=== PATIENT | male | born 1965 | race Caucasian/White ===

== ENCOUNTER 2019-04-03 19:44 | Emergency (ER) | payer BC ==
--- NOTE | 2019-04-03 19:59 | ER Document Report ---
ED Medical Screen (RME) - General Chief Complaint: Leg Swelling Stated Complaint: LEG PAIN Primary Care Provider: GILMA MEYER PA [Primary Care Provider] - Follow up as needed TRAVEL OUTSIDE OF THE [place] IN LAST 30 DAYS: No - HPI Notes: 04/03/19 19:58 53-year-old male presents the ED for right lower leg pain and swelling for the last 6 days after he was immobilized for up to 6 hours after receiving a tattoo to his right lower extremity. Reports swelling with erythema, denies any fevers or chills. Patient would like to have a ultrasound to rule out a DVT. No fevers or chills. Denies any shortness of breath, chest pain RLE: Noted scant erythema around tattoo marking I have greeted and performed a rapid initial assessment of this patient. A comprehensive ED assessment and evaluation of the patient, analysis of test results and completion of medical decision making process will be conducted by an additional ED providers. Physical Exam - Vital signs Vitals: Temp Pulse Resp BP Pulse Ox 98.3 F 81 16 139/75 H 96 04/03/19 19:55 04/03/19 19:55 04/03/19 19:55 04/03/19 19:55 04/03/19 19:55 Course - Vital Signs Vital signs: Temp Pulse Resp BP Pulse Ox 98.3 F 81 16 139/75 H 96 04/03/19 19:55 04/03/19 19:55 04/03/19 19:55 04/03/19 19:55 04/03/19 19:55 Doctor's Discharge - Discharge Referrals: GILMA MEYER PA [Primary Care Provider] - Follow up as needed
[2019-04-03] MEDS ORDERED: FAMOTIDINE 20 MG TABLET PO ONE (22:02)
[2019-04-03] MEDS ORDERED: PREDNISONE 20 MG TABLET PO ONE (22:02)
[2019-04-03] MEDS ORDERED: METHOCARBAMOL 500 MG TABLET PO ONE (22:02)
--- NOTE | 2019-04-03 22:12 | ER Document Report ---
HPI - HPI Time Seen by Provider: 04/03/19 21:00 Pain Level: 4 Notes: This is an otherwise healthy 53-year-old male presenting to the emergency department chief complaint of swelling and pain to his right leg. Patient reports he recently got a full leg sleeve tattoo and was immobilized for 6 hours. Patient is concerned he could have a DVT. Patient has no history of DVT, has not had any recent travel and has had no other risk factors for DVT. - DERM Skin Color: Normal Past Medical History - General Information source: Patient - Social History Smoking Status: Never Smoker Frequency of alcohol use: None Drug Abuse: None Family History: Reviewed & Not Pertinent Patient has suicidal ideation: No Patient has homicidal ideation: No - Past Medical History Cardiac Medical History: Reports: Hx Hypertension Endocrine Medical History: Reports: Hx Diabetes Mellitus Type 2 Vertical Provider Document - CONSTITUTIONAL Notes: PHYSICAL EXAMINATION: GENERAL: Well-appearing, well-nourished and in no acute distress. HEAD: Atraumatic, normocephalic. EYES: Pupils equal round extraocular movements intact, conjunctiva are normal. ENT: Nares patent NECK: Normal range of motion LUNGS: No respiratory distress Musculoskeletal: Generalized edema noted to right leg, fresh tattoo noted to entire leg. Strong dorsalis pedis pulse. NEUROLOGICAL: Normal speech, normal gait. PSYCH: Normal mood, normal affect. SKIN: Warm, Dry, normal turgor, no rashes or lesions noted. - INFECTION CONTROL TRAVEL OUTSIDE OF THE [place] IN LAST 30 DAYS: No Course - Re-evaluation Re-evalutation: Venous Doppler ultrasound was negative for DVT/SVT. Likely possible reaction to tattoo dye. Will start patient on appropriate medications. Patient verbalizes agreement with this plan. Patient understands ED return precautions and the need to possibly return for repeat venous Doppler if he continues to have unilateral leg swelling and pain 7 to 10 days from now. Venous Doppler Study 04/03/19 19:54 IMPRESSION: No evidence of DVT in right lower extremity. - Vital Signs Vital signs: Temp Pulse Resp BP Pulse Ox 98.3 F 81 16 139/75 H 96 04/03/19 19:55 04/03/19 19:55 04/03/19 19:55 04/03/19 19:55 04/03/19 19:55 Discharge - Discharge Clinical Impression: Right leg pain, Right leg swelling, Localized skin reaction Condition: Stable Disposition: HOME, SELF-CARE Additional Instructions: The venous Doppler ultrasound done today was negative for any DVT. Please take medications as prescribed. Please also consider taking Benadryl 25 to 50 mg when you are not on duty. Follow-up with your primary care provider on Sunday if symptoms have not dramatically improved by then. If you continue to have leg pain with swelling I would consider having a repeat venous ultrasound done in 10 days. Prescriptions: Prednisone [Deltasone 20 mg Tablet] 2 tab PO DAILY 5 Days #10 tablet Famotidine [Pepcid 40 mg Tablet] 40 mg PO BID #14 tablet Methocarbamol [Robaxin 500 mg Tablet] 500 mg PO Q4H #30 tablet Referrals: GILMA MEYER PA [Primary Care Provider] - Follow up as needed
[2019-04-03 22:23] VITALS: BP 135/79
--- NOTE | 2019-04-03 22:59 | RADIOLOGY REPORT (SQ) ---
Right lower extremity duplex venous ultrasonography HISTORY: Right lower extremity swelling, rule out DVT. Technique: Duplex venous ultrasonography including color and spectral flow Doppler imaging was performed in right lower extremities, focusing on the deep venous system. FINDINGS: There is no evidence of thrombosis in the right common femoral, superficial femoral and popliteal veins. The veins are compressible and demonstrate normal response to augmentation. IMPRESSION: No evidence of DVT in right lower extremity.
== END 2019-04-03 22:23 | disposition home or self-care (01) ==
LOC: ER 19:44
DX: M79.604 Pain in right leg (principal); M79.89 Other specified soft tissue disorders; L98.9 Disorder of the skin and subcutaneous tissue, unspecified; R60.0 Localized edema; E11.9 Type 2 diabetes mellitus without complications; I10 Essential (primary) hypertension
CPT/HCPCS: 99283; 93971; J7512

== ENCOUNTER → 2019-05-09 | Outpatient (CLI) | payer BC ==
[2019-05-09 08:45] LABS: CHOLESTEROL 173.96 mg/dL (0-200); TRIGLYCERIDES 136 mg/dL (<150)
[2019-05-09 08:57] LABS: DIRECT LDL 116 mg/dL (<100)
== END ==
LOC: OD 07:09
PROVIDERS: ATTEND Physician Assistant Medical
DX: E11.9 Type 2 diabetes mellitus without complications (principal)
CPT/HCPCS: 36415; 80061; 83036

== ENCOUNTER → 2020-05-22 | Outpatient (CLI) | payer BC ==
[2020-05-22 09:55] LABS: ABSOLUTE EOSINOPHILS # (AUTO) 0.1 10^3/uL (0.0-0.6); ABSOLUTE LYMPHOCYTES (AUTO) 2.1 10^3/uL (0.5-4.7); ABSOLUTE MONOCYTES (AUTO) 0.5 10^3/uL (0.1-1.4); ABSOLUTE NEUT (AUTO) 2.5 10^3/uL (1.7-8.2); BASOPHILS % (AUTO) 0.8 % (0-2); HEMATOCRIT 45.2 % (37.9-51.0); HEMOGLOBIN 15.3 g/dL (13.5-17.0); LYMPHOCYTES % (AUTO) 39.7 % (13-45); MEAN CORPUSCULAR HGB CONC 33.8 g/dL (32.0-36.0); MEAN CORPUSCULAR VOLUME 89 fl (80-97); MONOCYTES % (AUTO) 9.2 % (3-13); PLATELET COUNT 191 10^3/uL (150-450); RED BLOOD COUNT 5.09 10^6/uL (4.35-5.55); RED CELL DISTRIBUTION WIDTH 13.8 % (11.5-14.0); SEGMENTED NEUTROPHILS % (AUTO) 49.3 % (42-78); TOTAL CELLS COUNTED % (AUTO) 100 %; WHITE BLOOD COUNT 5.2 10^3/uL (4.0-10.5)
[2020-05-22 10:13] LABS: ALBUMIN 4.6 g/dL (3.5-5.0); ALKALINE PHOSPHATASE 55 U/L (38-126); ANION GAP 10 (5-19); ASPARTATE AMINO TRANSFERASE 24 U/L (17-59); BILIRUBIN,TOTAL 0.8 mg/dL (0.2-1.3); BLOOD UREA NITROGEN 14 mg/dL (7-20); CALCIUM 9.7 mg/dL (8.4-10.2); CARBON DIOXIDE 30 mmol/L (22-30); CHLORIDE 101 mmol/L (98-107); CHOLESTEROL 139.26 mg/dL (0-200); GLUCOSE 107 mg/dL (75-110); POTASSIUM 4.2 mmol/L (3.6-5.0); TOTAL PROTEIN 7.3 g/dL (6.3-8.2); TRIGLYCERIDES 97 mg/dL (<150)
[2020-05-22 10:24] LABS: DIRECT LDL 78 mg/dL (<100)
== END ==
LOC: OD 09:04
PROVIDERS: ATTEND Physician Assistant Medical
DX: I10 Essential (primary) hypertension (principal); E78.1 Pure hyperglyceridemia; E55.9 Vitamin D deficiency, unspecified; E11.29 Type 2 diabetes mellitus with other diabetic kidney complication; Z12.5 Encounter for screening for malignant neoplasm of prostate
CPT/HCPCS: 36415; 80053; 80061; 82306; 83036; 84153; 85025

== ENCOUNTER → 2020-06-25 | Outpatient (CLI) | payer BC ==
[~2020-06-25] MED LIST: COVID-19 VACCINE (PFIZER)/PF 30 MCG/0.3 ML VIAL IM ONE; EPINEPHRINE INJ/PF 1 MG/1 ML AMPULE IM PRN
== END ==
LOC: EMPHEALTH 11:14
PROVIDERS: ATTEND Internal Medicine
DX: Z23 Encounter for immunization (principal)
CPT/HCPCS: 91300

== ENCOUNTER → 2020-07-15 | Outpatient (CLI) | payer BC | LOC: EMPHEALTH 09:42 | PROVIDERS: ATTEND Internal Medicine | DX: Z23 Encounter for immunization (principal) | CPT/HCPCS: 91300 ==